=== PATIENT | female | born 1960 | race Two or more races ===

== ENCOUNTER 2023-03-04 11:36 | Inpatient (IN) | payer OTHER ==
[~2023-03-04] VITALS: Ht 162.6 cm; Wt 82.6 kg
[2023-03-04] MEDS ORDERED: LOSARTAN POTASS25 MG PO (13:49)
--- NOTE | 2023-03-04 13:52 | NUR ---
SE RECIBE PTE ALERTA ORIENTADA X3.PTE REFIERE TENER DEBILIDAD Y MALESTAR GENERAL DESDE EL PASADO SABADO.PTE CON HX DE ENFISEMA PULMONAR.SE DANYEL S/V Y SE UBICA.
[2023-03-04] MEDS ORDERED: STIOLTO RESPIMAT4 GM IH (13:54)
[2023-03-04 18:21] LABS: HEMATOCRIT 44.9 % (36.0-45.00); HEMOGLOBIN 15.5 g/dL (12.0-15.00); MEAN CELL VOLUME 90.5 fL (80.00-100.00); MEAN CORPUSCULAR HEMOGLOBIN 31.3 pg (27.00-32.0); MEAN CORPUSCULAR HGB CONC 34.6 g/dl (32.0-36.0); PLATELET COUNT 189 K/uL (150-450); RED BLOOD COUNT 4.97 M/uL (4.00-6.00); RED CELL DISTRIBUTION WIDTH 14.8 % (11.5-14.5)
--- NOTE | 2023-03-04 18:22 | NUR ---
SE ORIENTA PTE SOBRE TX A SEGUIR, EL CUAL REFIERE ENTENDER. SE COLECTAN MUESTRAS Y SE CANALIZA PTE UTILIZANDO MEDIDAS ASEPTICAS. SE ADM. [facility] ORDEN MEDICA. PTE MANEJADO POR BRUCE MENDOZA.
[2023-03-04 18:46] LABS: ALBUMIN 3.4 gm/dL (3.4-5.0); BILIRUBIN TOTAL 0.83 mg/dL (0.3-1.2); CALCIUM 9.3 mg/dL (8.5-10.1); CREATININE SERUM 1.31 mg/dL (0.55-1.02); GLOBULINA 4.9 G/DL (2.4-3.5); POTASSIUM 3.62 mEq/L (3.5-5.1); TOTAL PROTEIN 8.3 gm/dL (6.4-8.2)
[2023-03-04 19:18] LABS: ABG PH 7.453 (7.35-7.45); ABG PO2 63.8 mmHg (80-100); BASE EXCESS 3.8 mmol/l; BICARBONATE 28.1 mmol/l (23-25); SaO2 93.4 %; Tco2 29.3 mmol/l
[2023-03-04 19:20] LABS: allen test SATISFACTORY; puncture site RADIAL LEFT
[2023-03-04 19:21] LABS: o2 21 %
[2023-03-04 21:48] LABS: INR 1.16
[2023-03-04 22:00] LABS: D DIMER 1.98 MG/L; PARTIAL THROMBOPLASTIN TIME 31.6 SECONDS (22.0-34.0)
[2023-03-05 00:53] LABS: URINE BILIRRUBIN NEGATIVE (NEGATIVE); URINE COLOR YELLOW; URINE GLUCOSE NEGATIVE (NEGATIVE)
[2023-03-05 00:54] LABS: PH,URINE 6.5; URINE BLOOD LARGE; URINE NITRATE NEGATIVE; URINE PROTEIN 300 (NEGATIVE); URINE UROBILINOGEN 0.2 E.U./dl
[2023-03-05 00:55] LABS: URINE RBC 36-50 /HPF
[2023-03-05 00:56] LABS: URINE APPEARANCE CLOUDY; URINE LEUKOCYTE MODERATE; URINE WBC 41-50 /hpf
[2023-03-05 00:57] LABS: URINE BACTERIA MANY; URINE MUCUS SCANT
[2023-03-05 14:25] LABS: PH,URINE 5.5 (5.0-8.0); URINE APPEARANCE Cloudy; URINE BILIRRUBIN Negative (NEGATIVE); URINE BLOOD Small; URINE COLOR Yellow; URINE GLUCOSE Negative (NEGATIVE); URINE LEUKOCYTE Small; URINE NITRATE Negative; URINE PROTEIN Trace (NEGATIVE); URINE UROBILINOGEN 0.2 E.U./dl
[2023-03-05 14:26] LABS: URINE BACTERIA 272.1 uL (0.0-1933); URINE EPITHELIAL CELLS 32.1 uL (0.0-38.8); URINE RBC 26.4 uL (0.0-20.8); URINE WBC 186.2 uL (0.0-23.2)
[2023-03-06 06:14] LABS: HEMATOCRIT 36.7 % (36.0-45.00); HEMOGLOBIN 12.7 g/dL (12.0-15.00); MEAN CELL VOLUME 90.7 fL (80.00-100.00); MEAN CORPUSCULAR HEMOGLOBIN 31.4 pg (27.00-32.0); MEAN CORPUSCULAR HGB CONC 34.6 g/dl (32.0-36.0); PLATELET COUNT 176 K/uL (150-450); RED BLOOD COUNT 4.04 M/uL (4.00-6.00); RED CELL DISTRIBUTION WIDTH 14.5 % (11.5-14.5)
[2023-03-06 06:42] LABS: ALBUMIN 2.6 gm/dL (3.4-5.0); BILIRUBIN TOTAL 0.2 mg/dL (0.3-1.2); CALCIUM 8.3 mg/dL (8.5-10.1); CREATININE SERUM 0.87 mg/dL (0.55-1.02); GFR 65.76; GLOBULINA 3.1 G/DL (2.4-3.5); MAGNESIUM 2.2 mg/dL (1.8-2.4); PHOSPHOROUS 2.6 mg/dL (2.5-4.9); POTASSIUM 3.58 mEq/L (3.5-5.1); TOTAL PROTEIN 5.7 gm/dL (6.4-8.2)
[2023-03-06 07:03] LABS: C-REACTIVE PROTEIN 11.6 MG/DL (0.00-0.29)
== END 2023-03-07 10:52 | disposition home or self-care (01) | DRG 193 ==
LOC: ER 11:36 → MEDI 20:44
PROVIDERS: General Practice; Internal Medicine Infectious Disease; ADMIT Internal Medicine; ATTEND Internal Medicine
PROC: BW24ZZZ Computerized Tomography (CT Scan) of Chest and Abdomen (ICD-10-PCS; principal; 2023-03-04)
PROC: 3E0F7GC Introduction of Other Therapeutic Substance into Respiratory Tract, Via Natural or Artificial Opening (ICD-10-PCS; 2023-03-05)
DX: J18.9 Pneumonia, unspecified organism (principal); A41.9 Sepsis, unspecified organism; J45.901 Unspecified asthma with (acute) exacerbation; N39.0 Urinary tract infection, site not specified; J98.11 Atelectasis; N17.9 Acute kidney failure, unspecified; F17.200 Nicotine dependence, unspecified, uncomplicated; B96.89 Other specified bacterial agents as the cause of diseases classified elsewhere

== ENCOUNTER 2023-04-07 09:06 | Emergency (ER) | payer OTHER ==
[~2023-04-07] VITALS: Ht 152.4 cm; Wt 84.4 kg
[~2023-04-07 09:06] MED LIST: LOSARTAN POTASS25 MG PO; STIOLTO RESPIMAT4 GM IH
[2023-04-07 10:13] LABS: HEMATOCRIT 41.6 % (36.0-45.00); HEMOGLOBIN 13.7 g/dL (12.0-15.00); MEAN CELL VOLUME 93.7 fL (80.00-100.00); MEAN CORPUSCULAR HEMOGLOBIN 30.8 pg (27.00-32.0); MEAN CORPUSCULAR HGB CONC 32.9 g/dl (32.0-36.0); PLATELET COUNT 238 K/uL (150-450); RED BLOOD COUNT 4.44 M/uL (4.00-6.00); RED CELL DISTRIBUTION WIDTH 14.4 % (11.5-14.5)
[2023-04-07 10:38] LABS: CALCIUM 9.5 mg/dL (8.5-10.1); CREATININE SERUM 0.7 mg/dL (0.55-1.02); GFR 84.51; POTASSIUM 4.25 mEq/L (3.5-5.1)
== END 2023-04-07 10:57 | disposition home or self-care (01) ==
LOC: ER 09:06
PROVIDERS: General Practice
DX: R42 Dizziness and giddiness (principal)